=== PATIENT | male | born 1990 | race African-American/Black ===

== ENCOUNTER 2017-05-28 15:27 | Emergency (ER) | payer MEDICAID ==
[~2017-05-28] VITALS: Ht 193 cm; Wt 75.0 kg
[2017-05-28] MEDS ORDERED: SODIUM CHLORIDE 0.9% 1000ML BAG (SEPSIS BOLUS) IV ONE (16:45)
[2017-05-28] MEDS ORDERED: LORAZEPAM 2MG/ML CPJ IV ONE (16:45)
[2017-05-28] MEDS ORDERED: ASPIRIN 81MG EC TABLET PO ONE (16:45)
[2017-05-28 17:25] LABS: BASOPHILS % 0.6 % (0.0-2.0); EOSINOPHILS % 2.7 % (0.0-5.0); HEMATOCRIT. 45.6 % (42.0-52.0); HEMOGLOBIN. 16.2 g/dL (14.0-18.0); LYMPHOCYTES % 28.9 % (20.0-50.0); MEAN CORPUSCULAR HEMOGLOBIN 31.5 pg (28.0-32.0); MEAN CORPUSCULAR VOLUME 88.9 fL (80.0-94.0); MEAN PLATELET VOLUME 6.7 fl (7.4-10.4); MONOCYTES % 12.5 % (2.0-8.0); NEUTROPHILS % 55.3 % (40.0-76.0); PLATELET 312 x1000/uL (130-400); RED BLOOD CELL COUNT 5.13 mill/uL (4.7-6.1); RED CELL DISTRIBUTION WIDTH 12.8 % (11.6-14.6)
[2017-05-28 17:31] LABS: *AMPHETAMINES SCREEN URINE PRESUMTIVE POSITIVE (NEGATIVE); *BARBITURATES SCREEN URINE NEGATIVE (NEGATIVE); *BENZODIAZEPINES SCREEN URINE NEGATIVE (NEGATIVE); METHADONE URINE SCREEN NEGATIVE (NEGATIVE)
[2017-05-28 17:33] LABS: INR 1.2; PARTIAL THROMBOPLASTIN TIME 24.8 sec (23.4-31.0); PROTHROMBIN TIME 12.2 sec (9.4-11.6)
[2017-05-28 17:34] LABS: *COCAINE SCREEN URINE NEGATIVE (NEGATIVE); CANNABINOID URINE SCREEN PRESUMTIVE POSITIVE (NEGATIVE); OPIATES URINE SCREEN NEGATIVE (NEGATIVE); PHENCYCLIDINE URINE SCREEN NEGATIVE (NEGATIVE)
[2017-05-28 17:36] LABS: CHLORIDE 105 mEq/L (98-107); ETHANOL BLOOD < 10 mg/dL
[2017-05-28 17:42] LABS: CREATINE KINASE 828 IU/L (39-308)
[2017-05-29] MEDS ORDERED: SODIUM CHLORIDE 0.9% 1,000 ML IV SCH (01:07)
[2017-05-29] MEDS ORDERED: CLONIDINE 0.1MG TABLET PO PRN (01:15)
[2017-05-29] MEDS ORDERED: HYDROCODONE/ACETAMINOPHEN 5/325MG TABLET PO PRN (01:15)
[2017-05-29] MEDS ORDERED: ACETAMINOPHEN 325MG TABLET PO PRN (01:15)
[2017-05-29] MEDS ORDERED: ONDANSETRON HCL 4MG/2ML VIAL IV PRN (01:15)
[2017-05-29] MEDS ORDERED: DIPHENHYDRAMINE 50MG/ML VIAL IV PRN (01:15)
[2017-05-29 08:06] VITALS: BP 149/74
== END 2017-05-29 08:30 | disposition left against medical advice (07) ==
LOC: ER 16:54 → SUPCPDRO 05-29 01:06 → CANRESERV 05-29 07:05 → ENRESERV 05-29 07:05 → ER 05-29 08:30 → CANBEDREQ 05-29 11:22
DX: F15.10 Other stimulant abuse, uncomplicated (principal); R00.0 Tachycardia, unspecified; R94.31 Abnormal electrocardiogram [ECG] [EKG]; J45.909 Unspecified asthma, uncomplicated; F31.9 Bipolar disorder, unspecified; F12.10 Cannabis abuse, uncomplicated; F17.200 Nicotine dependence, unspecified, uncomplicated
CPT/HCPCS: 36415; 71045; 80053; 80305; 82550; 83880; 84484; 85025; 85610; 85730; 93005; 96361; 96374; 99285; G0482; J2060; J7030